=== PATIENT | male | born 1995 | race Caucasian/White ===

== ENCOUNTER 2017-05-19 14:22 | Inpatient (IN) | payer BC, OTHER ==
[~2017-05-19] VITALS: Ht 172.7 cm; Wt 117.9 kg
--- NOTE | 2017-05-19 23:00 | NUR ---
Pre Admission note Pt seen in intake office. Pt appears moderately intoxicated but stable at this time. V/S WNL. Policies on medication disposal explained and understood by patient. Will admit patient to Unit.
--- NOTE | 2017-05-19 23:38 | NUR ---
Admission note Pt is a 22 yo male, A+Ox4, presenting to [facility] for ETOH dependence. Pt has Allergies to cat dander, is on Full Code status, and on Regular diet. Pt is 5'8" in height and 260 LBS in weight. Pt has medical HX of Asthma. Pt has family HX of RA and Hyperlipidemia from Father. Pt has no Primary Care Provider. Pt has been drinking alcohol for 11 years, has reached a level of 750ml Vodka/daily, and last drink was 750ml Vodka on 05-19-17 @0000. Pt has no home medications to report. This is the Pt's first attempt at detox/rehab and cannot recall last sober period. Pt has been a cigarette smoker for 11 years, and has reached a rate of 10/daily. Pt is stable at this time with V/S WNL. No s/s of distress noted at this time. Respirations even and unlabored. Will continue to monitor.
[2017-05-20] MEDS ORDERED: ONDANSETRON 4 MG/2 ML VIAL IM PRN
[2017-05-20] MEDS ORDERED: MAGNESIUM HYDROXIDE 30 ML LIQUID UDC PO PRN
[2017-05-20] MEDS ORDERED: ONDANSETRON ODT 4 MG TAB.RAPDIS SL PRN
[2017-05-20] MEDS ORDERED: MAG HYDROX/AL HYDROX/SIMETH 30 ML LIQUID UDC PO PRN
[2017-05-20] MEDS ORDERED: ACETAMINOPHEN 325 MG TABLET PO PRN
[2017-05-20] MEDS ORDERED: LORAZEPAM 2 MG/1 ML VIAL IM PRN
[2017-05-20] MEDS ORDERED: LOPERAMIDE HCL 2 MG CAPSULE PO PRN ×2
[2017-05-20] MEDS ORDERED: MIRALAX 17 GM POWD.PACK PO PRN
[2017-05-20] MEDS ORDERED: IBUPROFEN 400 MG TABLET PO PRN
[2017-05-20] MEDS ORDERED: CLONIDINE HCL 0.1 MG TABLET PO PRN
[2017-05-20] MEDS ORDERED: DICYCLOMINE HCL 20 MG TABLET PO PRN
[2017-05-20] MEDS ORDERED: THIAMINE HCL 200 MG/2 ML VIAL IM ONE
[2017-05-20] MEDS ORDERED: LORAZEPAM 1 MG TABLET PO PRN ×2
[2017-05-20 00:12] VITALS: BP 153/94
[2017-05-20 01:18] LABS: ETHANOL < 3 MG/DL (0-0)
[2017-05-20 01:19] LABS: ALANINE AMINOTRANSFERASE 484 U/L (16-63); ALKALINE PHOSPHATASE 91 U/L (50-136); AMYLASE 58 U/L (25-115); ASPARTATE AMINOTRANSFERASE 155 U/L (15-37); BASOPHILS # (AUTO) 0.1 K/uL (0.0-8.0); BASOPHILS % (AUTO) 0.6 % (0.0-2.0); BILIRUBIN,TOTAL 0.8 mg/dL (0.2-1.0); CARBON DIOXIDE 23 mmol/L (21-32); CHLORIDE 102 mmol/L (98-107); CREATININE 0.8 mg/dL (0.6-1.3); EOSINOPHILS # (AUTO) 0.4 K/uL (0.0-0.7); EOSINOPHILS % (AUTO) 4.9 % (0.0-7.0); GLUCOSE 135 mg/dL (74-106); HEMOGLOBIN 16.5 G/DL (14.0-18.0); LIPASE 138 U/L (73-393); LYMPHOCYTES # (AUTO) 2.5 K/UL (0.8-4.8); LYMPHOCYTES % (AUTO) 28.7 % (20.5-51.5); MAGNESIUM 2.3 mg/dL (1.8-2.4); MEAN CORPUSCULAR HEMOGLOBIN 30.8 UUG (27.0-31.0); MEAN CORPUSCULAR HGB CONC 35 g/dL (32.0-37.0); MEAN CORPUSCULAR VOLUME 89.1 FL (82.0-92.0); MONOCYTES # (AUTO) 0.8 K/UL (0.1-1.30); MONOCYTES % (AUTO) 9.1 % (0.0-11.0); NEUTROPHILS # (AUTO) 5.1 K/UL (1.8-8.9); NEUTROPHILS % (AUTO) 56.7 % (38.5-71.5); PLATELET COUNT (AUTO) 228 K/UL (150-450); POTASSIUM 3.8 mmol/L (3.5-5.1); RED BLOOD CELL COUNT(AUTO) 5.38 MIL/UL (4.7-6.1); TOTAL PROTEIN, SERUM 8.2 g/dL (6.4-8.2); UREA NITROGEN, BLOOD 14 mg/dL (7-18); WHITE BLOOD COUNT (AUTO) 8.9 K/UL (4.0-11.2)
[2017-05-20 01:28] LABS: *AMPHETAMINE, URINE NEGATIVE (NEGATIVE); *BARBITURATE, URINE NEGATIVE (NEGATIVE); *CANNABINOID, URINE NEGATIVE (NEGATIVE); *COCCAINE, URINE NEGATIVE (NEGATIVE); *OPIATE, URINE NEGATIVE (NEGATIVE); *PHENCYCLIDINE SCREEN,URINE NEGATIVE (NEGATIVE)
[2017-05-20 01:30] LABS: THYROID STIMULATING HORMONE 4.386 mIU/mL (0.358-3.740)
[2017-05-20] MEDS ORDERED: TERB12GE TP (03:20)
[2017-05-20 04:14] VITALS: BP 144/89
--- NOTE | 2017-05-20 07:00 | NUR ---
End of shift note Pt is a 22 yo male, A+Ox4, presenting to [facility] for ETOH dependence. Pt has Allergies to cat dander, is on Full Code status, and on Regular diet. Pt is on Fall and Seizure precautions. Pt has HX of Asthma. Pt is on 5 day Ativan taper to start today. Pt slept for a total of 8 HRS. Last CIWA: 2 @0400. No s/s of distress noted at this time. Respirations even and unlabored. Will endorse to day shift nurse.
[2017-05-20 08:00] VITALS: BP 139/97
--- NOTE | 2017-05-20 08:00 | NUR ---
START OF SHIFT: RECEIVED PT ASLEEP. BED LOCKED AND LOW. RESPIRATIONS EVEN AND UNLABORED. CALL VALENCIA IN REACH. WILL CONTINUE TO MONITOR.
[2017-05-20] MEDS: THIAMINE HCL 100 MG TABLET PO SCH (09:00)
[2017-05-20] MEDS: LORAZEPAM 1 MG TABLET PO SCH ×4 (09:00→21:11)
[2017-05-20] MEDS: FOLIC ACID 1 MG TABLET PO SCH (09:00)
[2017-05-20] MEDS: MULTIVITAMINS,THERAPEUTIC TABLET PO SCH (09:00)
[2017-05-20] MEDS ORDERED: TUBERCULIN,PURIF.PROT.DERIV. 5 TU/0.1 ML TEST ID ONE ×2 (09:00→13:00)
--- NOTE | 2017-05-20 09:30 | NUR ---
COWS AND CIWA DEFERRED. PT IS ASLEEP AND ASKED IF HE COULD PLEASE SLEEP IN. WILL CONTINUE TO MONITOR. AM MEDS HELD. MADE AWARE.
[2017-05-20 13:00] VITALS: BP 144/95
--- NOTE | 2017-05-20 13:00 | NUR ---
PT IS A/O X 4. HE PRESENTS WITH CONSTRICTED AFFECT AND ANXIOUS MOOD. PPD PLANTED TO [facility]. HE REPORTS ANXIETY AND IRRITABILITY. ATIVAN ADMINISTERED ORDERED. CIWA 6
[2017-05-20 16:00] VITALS: BP 126/75
--- NOTE | 2017-05-20 18:37 | NUR ---
END OF SHIFT: PT REQUESTED TO SLEEP LATE TODAY. HE AWOKE PRESENTING WITH GUARDED AFFECT AND DEPRESSED MOOD. HE DENIES S/I AND H/I. HE C/O SOME ANXIETY. ATIVAN TAPER IN PROGRESS. LAST CIWA 5. PPD PLANTED TO [facility]. HE STATES HE WILL ATTEND H&I TONIGHT. WILL PASS SHIFT REPORT TO ONCOMING NIGHT NURSE.
--- NOTE | 2017-05-20 19:09 | NUR ---
Start of shift note Pt is a 22 yo male, A+Ox4, presenting to [facility] for ETOH dependence. Pt has Allergies to cat dander, is on Full Code status, and on Regular diet. Pt is on Fall and Seizure precautions. Pt has HX of Asthma. Pt is on 5 day Ativan taper, tolerated well. No s/s of distress noted at this time. Respirations even and unlabored. Will continue to monitor.
[2017-05-20 20:02] VITALS: BP 141/93
[2017-05-21 00:40] VITALS: BP 163/94
[2017-05-21 04:07] VITALS: BP 124/74
--- NOTE | 2017-05-21 06:58 | NUR ---
End of shift note Pt is a 22 yo male, A+Ox4, presenting to [facility] for ETOH dependence. Pt has Allergies to cat dander, is on Full Code status, and on Regular diet. Pt is on Fall and Seizure precautions. Pt has HX of Asthma. Pt is on 5 day Ativan taper, tolerated well. Pt slept for a total of 7 HRS. Last CIWA: 2 @0400. No s/s of distress noted at this time. Respirations even and unlabored. Will endorse to day shift nurse.
--- NOTE | 2017-05-21 07:55 | NUR ---
START OF SHIFT: RECEIVED PT A/0 x4 LAYING IN BED WATCHING TV. HE PRESENTS WITH POOR EYE CONTACT,ANXIOUS MOOD AND GUARDED AFFECT. CIWA 1. ATIVAN TAPER IN PROGRESS. ENCOURAGED GROUP AND ACTIVITIES. WILL CONTINUE TO MONITOR AND OFFER SAFE AND SUPPORTIVE ENVIRONMENT.
[2017-05-21 08:00] VITALS: BP 144/92
[2017-05-21] MEDS: MULTIVITAMINS,THERAPEUTIC TABLET PO SCH (08:48)
[2017-05-21] MEDS: FOLIC ACID 1 MG TABLET PO SCH (08:48)
[2017-05-21] MEDS: THIAMINE HCL 100 MG TABLET PO SCH (08:48)
[2017-05-21] MEDS: LORAZEPAM 1 MG TABLET PO SCH ×3 (08:48→21:11)
[2017-05-21 12:00] VITALS: BP 140/99
[2017-05-21 14:08] LABS: HEPATITIS B SURFACE AG Negative (Negative)
[2017-05-21 16:00] VITALS: BP 142/102
[2017-05-21] MEDS ORDERED: CLONIDINE HCL 0.1 MG TABLET PO ONE (17:45)
[2017-05-21] MEDS ORDERED: NAPROXEN 500 MG TABLET PO ONE (17:45)
--- NOTE | 2017-05-21 18:30 | NUR ---
END OF SHIFT: PT CONTINUES TO PRESENT WITH WITH GUARDED AFFECT AND DEPRESSED MOOD. HE DENIES S/I AND H/I. HE C/O SOME ANXIETY AND HE CO H/A LATE IN SHIFT. ONE TIME NAPROXEN GIVEN AND EFFECTIVE. HE WAS ALSO GIVEN CLONIDINE FOR SLIGHTLY ELEVATED BP AND P AND WAS ALSO EFFECTIVE. ATIVAN TAPER IN PROGRESS. LAST CIWA 4. HE ATTENDED GROUPS TODAY AND INTERACTED WITH PEERS. WILL PASS SHIFT REPORT TO ONCOMING NIGHT NURSE.
--- NOTE | 2017-05-21 19:39 | NUR ---
START OF SHIFT NOTE Pt is a 22 y/o male admitted for ETOH dependence and use. Pt has an allergy to cat dander and a PMH of asthma. Per day shift nurse pt was placed on a 5 day Ativan taper (day 3) and is tolerating medication well with no s/e or a/r reported. Pt received Clonidine 0.1 mg PO x 1 and Naproxen 500 mg PO x 1 during the day shift for a elevated blood pressure and headache. Last CIWA: 4 (1600). At this time pt is in room laying down watching television. At this time pt has just returned from being in the recreational room. Pt was stated "Earlier my stomach was hurting, but its not hurting anymore." Pt appears calm with no tremors or sweating present. PERRLA noted. Breathing is even and unlabored. Pt denies any pain/discomfort. Pt was encouraged to notify staff of any changes in condition or of any concerns. Pt verbalized an understanding. All safety measures in place. Will continue to monitor.
[2017-05-21 20:00] VITALS: BP 137/97
[2017-05-21] MEDS: GABAPENTIN 300 MG CAPSULE PO SCH (21:11)
[2017-05-21] MEDS: CLONIDINE HCL 0.1 MG TABLET PO SCH (21:11)
[2017-05-22] VITALS: BP 118/79
--- NOTE | 2017-05-22 04:00 | NUR ---
VITALS REFUSED AND CIWA DEFERRED Pt refused to have vitals taken at this time. Pt was encouraged x 3 with risks and benefits explained, but the pt still declined. CIWA assessment deferred until pt is awake. All safety measures in place. Will continue to monitor. Addendum: 05/22/17 at 0609 by MIKE ARELLANO LVN Amended: Links added.
--- NOTE | 2017-05-22 06:19 | NUR ---
END OF SHIFT NOTE/HAND OFF NOTE Pt is a 22 y/o male admitted for ETOH dependence and use. Pt has an allergy to cat dander and a PMH of asthma. Pt continues on a 5 day Ativan taper (day 4) and is tolerating medication well with no s/e or a/r reported or noted. Pt didn't receive any PRNS during the shift. Last CIWA: 2 (0000). Pt slept for a total of6 hours. No changes in condition. All safety measures in place. Endorsed to nurse C.F to ensure monitoring is continued.
--- NOTE | 2017-05-22 07:15 | NUR ---
START OF SHIFT NOTE: RECEIVED PT FROM FINISHING TRIMMER NURSE, PT IS IN STABLE CONDITION AT THIS TIME, PT IS ADMITTED TO [facility] FOR [facility]H WITHDRAWAL/DEPENDENCE. PTS LAST CIWA 2, WILL CONTINUE PT FOR A/R TO TAPER MEDICATIONS. WILL CONTINUE TO MONITOR PT FOR ANY CHANGES AND ENCOURAGE PT TO JOIN GROUPS AND ACTIVITIES
[2017-05-22 08:24] VITALS: BP 123/71
[2017-05-22 08:35] LABS: ALANINE AMINOTRANSFERASE 362 U/L (16-63); ALKALINE PHOSPHATASE 79 U/L (50-136); ASPARTATE AMINOTRANSFERASE 114 U/L (15-37); BILIRUBIN,DIRECT 0.2 mg/dL (0.0-0.2); BILIRUBIN,TOTAL 0.9 mg/dL (0.2-1.0); CARBON DIOXIDE 25 mmol/L (21-32); CHLORIDE 105 mmol/L (98-107); CREATININE 0.7 mg/dL (0.6-1.3); GLUCOSE 122 mg/dL (74-106); MAGNESIUM 2.5 mg/dL (1.8-2.4); POTASSIUM 4.2 mmol/L (3.5-5.1); TOTAL PROTEIN, SERUM 7.1 g/dL (6.4-8.2); UREA NITROGEN, BLOOD 8 mg/dL (7-18)
[2017-05-22] MEDS: THIAMINE HCL 100 MG TABLET PO SCH (08:43)
[2017-05-22] MEDS: MULTIVITAMINS,THERAPEUTIC TABLET PO SCH (08:43)
[2017-05-22] MEDS: LORAZEPAM 1 MG TABLET PO SCH ×4 (08:43→20:11)
[2017-05-22] MEDS: GABAPENTIN 300 MG CAPSULE PO SCH ×2 (08:43→20:12)
[2017-05-22] MEDS: FOLIC ACID 1 MG TABLET PO SCH (08:43)
[2017-05-22] MEDS: CLONIDINE HCL 0.1 MG TABLET PO SCH ×3 (08:56→20:11)
[2017-05-22 14:01] VITALS: BP 139/98
[2017-05-22] MEDS ORDERED: NAPROXEN 500 MG TABLET PO PRN (17:00)
[2017-05-22 17:38] VITALS: BP 144/84
--- NOTE | 2017-05-22 18:33 | NUR ---
END OF SHIFT NOTE: PT IS ALERT AND ORIENTED THROUGHOUT THE SHIFT, PT IS TOLERATING TAPER MEDICATIONS WELL, NO A/R NOTED. PT IS ADMITTED TO [facility] FOR [facility]H WITHDRAWAL/DEPENDENCE. PT WITH INCREASED ANXIETY THROUGHOUT THE SHIFT. V/S STABLE AND VERBALLY DISCUSSED DIET D/T INCREASED BS LEVELS. PTS LAST CIWA IS 5 R/T ANXIETY, PT WITH NEW ORDER FOR VISTARIL PRN. WILL ENDORSE PT TO ZINC ETCHER NURSE.
[2017-05-22] MEDS: HYDROXYZINE PAMOATE 25 MG CAPSULE PO PRN (18:51)
--- NOTE | 2017-05-22 18:53 | NUR ---
PRN Pt states feels anxious. Vistaril po prn per MD order given and tolerated well.
--- NOTE | 2017-05-22 19:53 | NUR ---
VISTARIL PRN REASSESSMENT Pt reported still having some anxiety. PRN Vistaril 25 mg PO ineffective. Nursing interventions implemented. Routine medication including Ativan 1 mg PO to be given. Pt was encouraged to notify staff of any changes in condition or of any further concerns. Pt verbalized an understanding. All safety measures in place. Will continue to monitor.
--- NOTE | 2017-05-22 19:58 | NUR ---
START OF SHIFT NOTE Pt is a 22 y/o male admitted for ETOH dependence and use. Pt has an allergy to cat dander and a PMH of asthma. Per day shift nurse pt continues on a 5 day Ativan taper (day 4) and is tolerating medication well with no s/e or a/r reported. Pt received Vistaril 25 mg PO PRN during the day shift for c/o anxiety. Last CIWA: 5 (1600). Pt approached the nurse's station stating " Is there anything I can take for my anxiety? The other medication I got didn't really work." Pt is notably anxious with observable sweat and tremors. Nursing interventions implemented. Pt was encouraged to notify staff of any changes in condition or of any further concerns. Pt verbalized an understanding. Vitals signs to be assessed and routine medication to be given as ordered. Will continue to monitor.
[2017-05-22 20:00] VITALS: BP 130/95
[2017-05-22] MEDS: diphenhydrAMINE 50 MG CAPSULE PO PRN (23:01)
--- NOTE | 2017-05-22 23:01 | NUR ---
BENADRYL PRN ADMINISTRATION Pt stated " I'm having trouble sleeping. Can I get something?" Benadryl 50 mg PO PRN was given. All safety measures in place. Will monitor for effectiveness.
--- NOTE | 2017-05-23 | NUR ---
VITALS REFUSAL/ CIWA DEFERRED Pt refused to have vitals taken at this time. Pt was encouraged x 3 with risks and benefits explained, but the pt still declined. At this time pt is asleep in bed with with no signs of discomfort/distress noted. CIWA assessment deferred until pt is awake. All safety measures in place. Will continue to monitor. Addendum: 05/23/17 at 0227 by MIKE ARELLANO LVN Amended: Links added.
--- NOTE | 2017-05-23 00:01 | NUR ---
BENADRYL PRN REASSESSMENT Pt is asleep in bed with no signs of discomfort/distress noted. Breathing is even and unlabored. PRN effective. All safety measures in place. Will continue to monitor.
--- NOTE | 2017-05-23 04:00 | NUR ---
VITALS REFUSED/ CIWA DEFERRED Pt refused to have vitals taken at this time. Pt was encouraged x 3 with risks and benefits explained, but the pt still refused. CIWA assessment deferred until pt is awake. All safety measures in place. Will continue to monitor. Addendum: 05/23/17 at 0606 by MIKE ARELLANO LVN Amended: Links added.
--- NOTE | 2017-05-23 07:02 | NUR ---
Start of Shift Endorsement received from nightshift nurse. Pt is a 22 y/o male admitted for alcohol dependence. Pt has been placed on a 5 day Ativan taper. Pt is tolerating the taper and moderately withdrawing at this time AEB CIWA 5. Pt received PRN Benadryl. Pt reports sleeping 8 hours and feeling rested. VS WNL. Full Code. Pt is in STABLE condition at this time. Remains compliant with medication and diet regimen. All needs have been met, All safety measures in place per hospital policy. Bed in lowest position, side rails up x2, call-light within reach. Will continue to monitor
--- NOTE | 2017-05-23 07:10 | NUR ---
END OF SHIFT NOTE Pt is a 22 y/o male admitted for ETOH dependence and use. Pt has an allergy to cat dander and a PMH of asthma. Pt continues on a 5 day Ativan taper (day 5) and is tolerating medication well with no s/e or a/r reported or noted. Pt received Benadryl 50 mg PO PRN during the shift. Last CIWA: 5 (1999). Pt slept for a total of 8 hours. No changes in condition. All safety measures in place. Will endorse to the oncoming nurse.
[2017-05-23 08:00] VITALS: BP 124/73
[2017-05-23] MEDS: LORAZEPAM 1 MG TABLET PO SCH ×3 (08:49→20:39)
[2017-05-23] MEDS: FOLIC ACID 1 MG TABLET PO SCH (08:49)
[2017-05-23] MEDS: MULTIVITAMINS,THERAPEUTIC TABLET PO SCH (08:49)
[2017-05-23] MEDS: GABAPENTIN 300 MG CAPSULE PO SCH ×3 (08:49→20:39)
[2017-05-23] MEDS: THIAMINE HCL 100 MG TABLET PO SCH (08:49)
[2017-05-23] MEDS: CLONIDINE HCL 0.1 MG TABLET PO SCH ×3 (08:49→20:40)
[2017-05-23 12:00] VITALS: BP 112/78
[2017-05-23 16:00] VITALS: BP 131/86
--- NOTE | 2017-05-23 19:01 | NUR ---
End of Shift Endorsement given to nightshift nurse. Pt is a 22 y/o male admitted for alcohol dependence. Pt has been placed on a 5 day Ativan taper. Pt is tolerating the taper and moderately withdrawing at this time AEB CIWA 5. Pt did not receive any prn medications. Pt participated in groups and activities. Educated pt on medications S/E and diet regimen. Intake: 2000ml, Void x4, BM x0. VS WNL. Full Code. Pt is in STABLE condition at this time. Remains compliant with medication and diet regimen. All needs have been met, All safety measures in place per hospital policy. Bed in lowest position, side rails up x2, call-light within reach. Will continue to monitor
[2017-05-23 20:00] VITALS: BP 144/98
--- NOTE | 2017-05-23 20:07 | NUR ---
START OF SHIFT NOTE Pt is a 22 y/o male admitted for ETOH dependence and use. Pt has an allergy to cat dander and a PMH of asthma. Per day shift nurse pt continues on a 5 day Ativan taper (day 5) and is tolerating medication well with no s/e or a/r reported. Pt received Vistaril 25 mg PO PRN during the day shift for c/o anxiety. Last CIWA: 5 (1600). Pt is currently in his room watching television. Pt's skin is dry and intact. Breathing is even and unlabored. MANOJ noted. Pt stated " I'm ready for medication." Pt denies any pain/discomfort. Pt was encouraged to notify staff of any changes in condition or of any further concerns. Pt verbalized an understanding. Vitals signs to be assessed and routine medication to be given as ordered. Will continue to monitor.
--- NOTE | 2017-05-24 | NUR ---
VITALS REFUSED/ CIWA DEFERRED Pt refused to have vitals taken at this time. Pt was encouraged x 3 with risks and benefits explained, but the pt still refused. Pt is currently asleep in bed with no signs of discomfort/distress noted. CIWA assessment deferred until pt is awake. All safety measures in place. Will continue to monitor. Addendum: 05/24/17 at 0509 by MIKE ARELLANO LVN Amended: Links added.
--- NOTE | 2017-05-24 04:00 | NUR ---
VITALS REFUSED/ CIWA DEFERRED Pt refused to have vitals taken at this time. Pt was encouraged x 3 with risks and benefits explained, but the pt still refused. Pt is currently asleep in bed with no signs of discomfort/distress noted. CIWA assessment deferred until pt is awake. All safety measures in place. Will continue to monitor. Addendum: 05/24/17 at 0510 by MIKE ARELLANO LVN Amended: Links added.
--- NOTE | 2017-05-24 06:57 | NUR ---
END OF SHIFT NOTE Pt is a 22 y/o male admitted for ETOH dependence and use. Pt has an allergy to cat dander and a PMH of asthma. Pt is on a Ativan taper and is tolerating medication well with no s/e or a/r reported or noted. Pt didn't receive any PRNS during the shift. Last CIWA:3 (1999). Pt slept for a total of 7 hours. No changes in condition. All safety measures in place. Will endorse to the oncoming nurse.
--- NOTE | 2017-05-24 07:08 | NUR ---
Start of Shift Endorsement received from nightshift nurse. Pt is a 22 y/o male admitted for alcohol dependence. Pt has been placed on a 5 day Ativan taper. Pt is tolerating the taper and moderately withdrawing at this time AEB CIWA 3. Pt did not receive any prn medications. Pt reports sleeping 7 hours and feeling rested. VS WNL. Full Code. Pt is in STABLE condition at this time. Remains compliant with medication and diet regimen. All needs have been met, All safety measures in place per hospital policy. Bed in lowest position, side rails up x2, call-light within reach. Will continue to monitor
[2017-05-24 08:00] VITALS: BP 104/69
[2017-05-24] MEDS: FOLIC ACID 1 MG TABLET PO SCH (09:08)
[2017-05-24] MEDS: MULTIVITAMINS,THERAPEUTIC TABLET PO SCH (09:08)
[2017-05-24] MEDS: GABAPENTIN 300 MG CAPSULE PO SCH ×3 (09:08→20:48)
[2017-05-24] MEDS: THIAMINE HCL 100 MG TABLET PO SCH (09:08)
[2017-05-24] MEDS: CLONIDINE HCL 0.1 MG TABLET PO SCH ×3 (09:09→20:48)
[2017-05-24] MEDS: LORAZEPAM 1 MG TABLET PO SCH ×2 (09:09→20:48)
[2017-05-24 12:00] VITALS: BP 132/89
[2017-05-24 16:00] VITALS: BP 139/93
[2017-05-24] MEDS: HYDROXYZINE PAMOATE 25 MG CAPSULE PO PRN (17:24)
--- NOTE | 2017-05-24 17:28 | NUR ---
PRN Medications Administered PRN Naprosyn and Vistaril for anxiety and headache.
--- NOTE | 2017-05-24 18:00 | NUR ---
Medication Re-assessment Pt reports mild anxiety 2/10 and pain 3/10 at this time. Medication was effective.
--- NOTE | 2017-05-24 18:58 | NUR ---
End of Shift Endorsement given to nightshift nurse. Pt is a 22 y/o male admitted for alcohol dependence. Pt has been placed on a 5 day Ativan taper. Pt is tolerating the taper and moderately withdrawing at this time AEB CIWA 3. Pt received PRN Naprosyn and Vistaril. Pt did not participate in groups, encouraged pt to participate in groups and activities. Educated pt on none-pharmacological methods of dealing with anxiety. Reinforced education on diet regimen. Intake: 3440ml, Void x3, BM x3. VS WNL. Full Code. Pt is in STABLE condition at this time. Remains compliant with medication and diet regimen. All needs have been met, All safety measures in place per hospital policy. Bed in lowest position, side rails up x2, call-light within reach. Will continue to monitor
--- NOTE | 2017-05-24 19:00 | NUR ---
Start of Shift Patient Received. Patient is in activities room participating in group meeting. Patient is a 22 year old male, admitted on 05/19/17 for ETOH Dependence under the care of Dr. Roger. Patient is currently receiving a 5 day Ativan. Patient verbalizes allergies to Cat Dander, wishes to be full code, following a regular diet, skin intact, placed on fall and seizure precautions. No seizure noted. Past Medical history noted as Asthma. Per endorsement, patient was given PRN Vistaril and Naproxen with medication noted to be effective. All needs attended to promptly. Will continue plan of care as ordered.
[2017-05-24 20:46] VITALS: BP 139/89
[2017-05-24] MEDS: diphenhydrAMINE 50 MG CAPSULE PO PRN (21:59)
--- NOTE | 2017-05-24 22:00 | NUR ---
PRN Medication Administration Patient is verbalizing inability of falling asleep. All non pharmacological interventions noted not effective. PRN Benadryl administered as per order. Will continue to monitor.
--- NOTE | 2017-05-24 23:00 | NUR ---
PRN Medication Reassessment Patient is noted in bed sleeping. Breathing even and non labored. No signs of pain or discomfort noted. Patients respirations noted to be 16. PRN Benadryl noted to be effective. Will continue to monitor.
[2017-05-25 00:05] VITALS: BP 116/59
[2017-05-25 04:45] VITALS: BP 111/59
--- NOTE | 2017-05-25 06:54 | NUR ---
End of Shift Patient is in bed sleeping. Breathing even and non labored. No signs of pain or discomfort noted. Patient is a 22 year old male admitted for ETOH Dependence currently receiving a 5 day Ativan taper. Patient is tolerating plan of care well. PRN Benadryl administered for sleep with medication noted to be effective. Patient noted to sleep a total of 6 hours during shift. All needs attended to promptly. Will continue plan of care as ordered.
--- NOTE | 2017-05-25 07:08 | NUR ---
Start of Shift Endorsement received from nightshift nurse. Pt is a 22 y/o male admitted for alcohol dependence. Pt has been placed on a 5 day Ativan taper. Pt is tolerating the taper and moderately withdrawing at this time AEB CIWA 3 at 0400. Pt received PRN motrin and Maalox. Pt reports sleeping 6 hours and feeling rested. Pt is expected to complete his taper today. Reports readiness for sobriety. VS WNL. Full Code. Pt is in STABLE condition at this time. Remains compliant with medication and diet regimen. All needs have been met, All safety measures in place per hospital policy. Bed in lowest position, side rails up x2, call-light within reach. Will continue to monitor
[2017-05-25 08:00] VITALS: BP 119/84
[2017-05-25] MEDS: GABAPENTIN 300 MG CAPSULE PO SCH ×3 (08:43→20:38)
[2017-05-25] MEDS: FOLIC ACID 1 MG TABLET PO SCH (08:43)
[2017-05-25] MEDS: MULTIVITAMINS,THERAPEUTIC TABLET PO SCH (08:43)
[2017-05-25] MEDS: THIAMINE HCL 100 MG TABLET PO SCH (08:43)
[2017-05-25] MEDS: CLONIDINE HCL 0.1 MG TABLET PO SCH ×3 (08:43→20:38)
[2017-05-25 12:00] VITALS: BP 135/90
[2017-05-25] MEDS: HYDROXYZINE PAMOATE 25 MG CAPSULE PO PRN ×2 (12:41→20:37)
[2017-05-25 16:00] VITALS: BP 130/87
[2017-05-25] MEDS ORDERED: HYDR-3895 PO (16:34)
[2017-05-25] MEDS ORDERED: GABA-534 PO (16:34)
[2017-05-25] MEDS ORDERED: DIPH50CA37 PO (16:34)
[2017-05-25] MEDS ORDERED: CLON0.1T14 PO (16:34)
[2017-05-25] MEDS ORDERED: NAPR500T3 PO (16:34)
[2017-05-25 17:38] LABS: *AMPHETAMINE, URINE NEGATIVE (NEGATIVE); *BARBITURATE, URINE NEGATIVE (NEGATIVE); *CANNABINOID, URINE NEGATIVE (NEGATIVE); *COCCAINE, URINE NEGATIVE (NEGATIVE); *OPIATE, URINE NEGATIVE (NEGATIVE); *PHENCYCLIDINE SCREEN,URINE NEGATIVE (NEGATIVE)
--- NOTE | 2017-05-25 18:29 | NUR ---
End of Shift Endorsement given to nightshift nurse. Pt is a 22 y/o male admitted for alcohol dependence. Pt has been placed on a 5 day Ativan taper. Pt is tolerating the taper and moderately withdrawing at this time AEB CIWA 2. Pt did not receive any PRN medications. Pt has been scheduled for discharge on 05/26/17. Discharge education has been provided and pt reports understanding. Pt participated in groups and activities. Pt reports readiness for discharge. Intake: 2850ml, Void x4, BM x1. VS WNL. Full Code. Pt is in STABLE condition at this time. Remains compliant with medication and diet regimen. All needs have been met, All safety measures in place per hospital policy. Bed in lowest position, side rails up x2, call-light within reach. Will continue to monitor
--- NOTE | 2017-05-25 19:15 | NUR ---
Start of Shift Notes: Report received from day shift nurse. Pt is a 22M, admitted for ETOH dependence on 05/19/17. Pt attended H&I panel upon the start of shift. Pt is AOx4 without s/s of acute distress. Pt is full code, on regular diet, and on fall/seizure precautions. Pt noted with allergy to cat dander. Pt reports hx of Anxiety. Pt has completed Ativan taper and is scheduled for discharge tomorrow morning. Bed in lowest position. Side rails up x2. Call light functioning and within reach. All needs attended and met. Will continue to monitor.
[2017-05-25 20:00] VITALS: BP 155/81
[2017-05-25] MEDS: diphenhydrAMINE 50 MG CAPSULE PO PRN (20:37)
--- NOTE | 2017-05-25 20:37 | NUR ---
Vistaril PRN: Pt c/o anxiety due to his discharge in the morning. Pt requested medication to relieve anxiety. Vistaril PRN given as ordered. Will continue to monitor.
[2017-05-25] MEDS ORDERED: HYDROXYZINE PAMOATE 25 MG CAPSULE PO ONE (22:15)
[2017-05-26] VITALS: BP 125/80
--- NOTE | 2017-05-26 04:00 | NUR ---
Vitals and CIWA assessment refused: Pt stated that he would like to continue sleeping because he will be leaving in the morning. Pt requested to take his vitals and be assessed at a later time. Will continue to monitor.
--- NOTE | 2017-05-26 07:01 | NUR ---
End of Shift Notes: Pt is 22M, admitted for ETOH dependence on 05/19/17. Pt is AOx4 without s/s of acute distress. Pt is full code, on regular diet, and on fall/seizure precautions. Pt noted with NKA. Pt completed 5-day Ativan taper to manage withdrawal symptoms. Pt is compliant with plan of care. Pt slept for 6 hours. Respirations even and unlabored. Last CIWA score was 2 at 0000 and any symptoms were effectively controlled by PRN medications. Pt reported anxiety during shift. PRN Vistaril given and was effective. No N/V noted during the shift. Fall and Sz precautions observed. Bed in lowest position. Side rails up x2. Call light functioning and within reach. All needs attended and met. Will endorse to day shift nurse.
--- NOTE | 2017-05-26 07:35 | NUR ---
START OF SHIFT Received report from night nurse. 22 year old male patient admitted on 05/19/17 for ETOH withdrawals. Pt has completed 5 day Ativan taper and is medically cleared for discharge. No acute s/s of withdrawal noted at night. Most recent CIWA is 2. PRN Vistaril was administered for anxiety. Pt has hx of asthma, no sob noted. Pt ambulates with steady gait, v/s remain WNL. Pt verbalizes feelings and remains compliant with treatment plan throughout hospitalization. All needs met, will continue to monitor.
[2017-05-26 08:03] VITALS: BP 133/85
[2017-05-26 08:40] VITALS: BP 133/81
[2017-05-26] MEDS: GABAPENTIN 300 MG CAPSULE PO SCH (08:40)
[2017-05-26] MEDS: CLONIDINE HCL 0.1 MG TABLET PO SCH (08:40)
[2017-05-26] MEDS: THIAMINE HCL 100 MG TABLET PO SCH (08:41)
[2017-05-26] MEDS: MULTIVITAMINS,THERAPEUTIC TABLET PO SCH (08:41)
[2017-05-26] MEDS: FOLIC ACID 1 MG TABLET PO SCH (08:41)
--- NOTE | 2017-05-26 09:40 | NUR ---
D/C NOTE Pt is A/O x4. V/S remain WNL. Pt denies SI/HI or hallucinations. Pt shows no s/s of acute withdrawal at this time, and is stable. MD has medically cleared pt for d/c. Education on Hepatitis C, smoking cessation and medication side effects provided. Pt verbalizes understanding. All pt belongings are in belonging bag, including prescriptions, and home medications. Refuses PNU vaccination. Pt is being accompanied by [facility] at this time to be transported to rehab. All needs met.
== END 2017-05-26 10:20 | disposition other institution (70) | DRG 895 ==
LOC: SRC 23:45
PROVIDERS: ADMIT Internal Medicine; ATTEND Internal Medicine
PROC: HZ2ZZZZ Detoxification Services for Substance Abuse Treatment (ICD-10-PCS; principal; 2017-05-19)
PROC: HZ41ZZZ Group Counseling for Substance Abuse Treatment, Behavioral (ICD-10-PCS; 2017-05-21)
PROC: HZ31ZZZ Individual Counseling for Substance Abuse Treatment, Behavioral (ICD-10-PCS; 2017-05-22)
DX: F10.230 Alcohol dependence with withdrawal, uncomplicated (principal); F33.2 Major depressive disorder, recurrent severe without psychotic features; K70.10 Alcoholic hepatitis without ascites; Y90.9 Presence of alcohol in blood, level not specified; Z83.3 Family history of diabetes mellitus; Z81.1 Family history of alcohol abuse and dependence; Z80.9 Family history of malignant neoplasm, unspecified; Z59.0 Homelessness; Z59.1 Inadequate housing; F41.9 Anxiety disorder, unspecified; F17.210 Nicotine dependence, cigarettes, uncomplicated; I15.9 Secondary hypertension, unspecified; E66.9 Obesity, unspecified; Z68.39 Body mass index [BMI] 39.0-39.9, adult; E07.81 Sick-euthyroid syndrome; R73.9 Hyperglycemia, unspecified
CPT/HCPCS: 36415; 70030-TC; 80307; 83690; 83735; 84443; 85025; 86580; 86592; 86705; 86803; 87340; 87806; A4663; G0480; Q0163